=== PATIENT | female | born 1980 | race Caucasian/White ===

== ENCOUNTER 2017-12-07 12:17 | Emergency (ER) | payer SELFPAY ==
[~2017-12-07] VITALS: Ht 162.6 cm; Wt 103.0 kg
[2017-12-07 12:30] VITALS: Ht 162.6 cm; Wt 103.0 kg
[2017-12-07 14:02] VITALS: BP 155/75
== END 2017-12-07 14:02 | disposition home or self-care (01) ==
LOC: ED 12:17
DX: S09.90XA Unspecified injury of head, initial encounter (principal); X58.XXXA Exposure to other specified factors, initial encounter; Y93.89 Activity, other specified; Y92.89 Other specified places as the place of occurrence of the external cause; Y99.8 Other external cause status